=== PATIENT | female | born 1940 | race Caucasian/White ===

== ENCOUNTER 2018-11-06 08:22 | Emergency (ER) | payer MEDICARE, BC ==
[~2018-11-06] VITALS: Ht 160 cm; Wt 57.2 kg
[2018-11-06 08:24] VITALS: BP 115/58; PULSE 70; RESP 18; Ht 160 cm; Wt 57.2 kg
== END 2018-11-06 09:31 | disposition home or self-care (01) ==
LOC: FTE 08:22
DX: S90.32XA Contusion of left foot, initial encounter (principal); W23.0XXA Caught, crushed, jammed, or pinched between moving objects, initial encounter; Y92.9 Unspecified place or not applicable